=== PATIENT | female | born 1990 | race African-American/Black ===

== ENCOUNTER 2017-05-25 20:05 | Emergency (ER) | payer SELFPAY ==
[2017-05-25 20:24] VITALS: TEMP 98.4
[2017-05-25] MEDS ORDERED: NS 1,000 ML IV ONE ×2 (20:31→21:48)
[2017-05-25] MEDS ORDERED: HYDROmorphONE/DILAUDID 1 MG/ML INJ IVP ONE (21:32)
[2017-05-25 21:37] LABS: % IMMATURE GRANULYOCYTES 0.2 % (0.0-1.1); ABSOLUTE IMMATURE GRANULOCYTES 0.01 10^3/uL (0.00-0.10); ADD DIFF? NO; ADD MORPH? NO; ADD SCAN? NO; ATYPICAL LYMPHOCYTE FLAG 30 (0-99); FRAGMENT RBC FLAG 0 (0-99); HEMATOCRIT 38.3 % (38.0-47.0); HEMOGLOBIN 12.2 g/dL (12.6-16.3); LEFT SHIFT FLG 0 (0-99); LIPEMIA HEMOLYSIS FLAG 80 (0-99); MEAN CELL HEMOGLOBIN CONCENTR. 31.9 g/dL (32.4-36.7); MEAN CELL VOLUME 87.8 fL (81.5-99.8); MEAN PLATELET VOLUME 9.9 fL (8.7-11.7); PLATELET CLUMPS FLAG 10 (0-99); PLATELET COUNT 267 10^3/uL (150-400); RED BLOOD CELL COUNT 4.36 10^6/uL (4.18-5.33); RED CELL DISTRIBUTION WIDTH 14.9 % (11.5-15.2)
[2017-05-25] MEDS ORDERED: IOPAMIDOL (ISOVUE-300) 100 ML BTL ONE (21:39)
--- NOTE | 2017-05-25 21:48 | CPEKG ---
Heart Rate: 86 RR Interval: 698 P-R Interval: 140 QRSD Interval: 70 QT Interval: 372 QTC Interval: 445 P [place]: 56 QRS [place]: 16 T Wave [place]: 11 EKG Severity - NORMAL ECG - EKG Impression: SINUS RHYTHM Electronically Signed By: Aden Crawford 25-May-2017 23:19:16
[2017-05-25 21:52] LABS: ANION GAP 11 mEq/L (8-16); CALCIUM 8.9 mg/dL (8.5-10.4); CARBON DIOXIDE 18 mEq/l (22-31); CHLORIDE 110 mEq/L (97-110); CREATININE 0.6 mg/dL (0.6-1.0); GLOMERULAR FILTRATION RATE > 60; GLUCOSE 78 mg/dL (70-100); POTASSIUM 4.2 mEq/L (3.5-5.2); SODIUM 139 mEq/L (134-144)
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
[2017-05-25] MEDS ORDERED: methylPREDNISolone SOD SUCC 125 MG/2 ML VIAL IVP ONE ×2 (22:19)
[2017-05-25] MEDS ORDERED: FAMOTIDINE 20 MG in NS 100 ML IV ONE (22:42)
[2017-05-25] MEDS ORDERED: PROMETHAZINE 25MG SUPP PREPK#4 BTL TAKEHOME ONE (22:53)
[2017-05-25] MEDS ORDERED: PROMETHAZINE 25 MG PREPACK #4 BTL TAKEHOME ONE (23:22)
[2017-05-25 23:39] VITALS: BP 107/77; PULSE 92; RESP 19; O2SAT 95
== END 2017-05-25 23:39 | disposition home or self-care (01) ==
LOC: CED 20:05
PROC: 3E0337Z Introduction of Electrolytic and Water Balance Substance into Peripheral Vein, Percutaneous Approach (ICD-10-PCS; principal; 2017-05-25)
DX: S06.0X9A Concussion with loss of consciousness of unspecified duration, initial encounter (principal); S16.1XXA Strain of muscle, fascia and tendon at neck level, initial encounter; S39.91XA Unspecified injury of abdomen, initial encounter; T50.8X5A Adverse effect of diagnostic agents, initial encounter; E86.9 Volume depletion, unspecified; R11.10 Vomiting, unspecified; V43.92XA Unspecified car occupant injured in collision with other type car in traffic accident, initial encounter; Y92.410 Unspecified street and highway as the place of occurrence of the external cause
CPT/HCPCS: 70450-PO; 71010-PO; 72125-PO; 74177-PO; 80048-PO; 82947-QW; 85025-PO; 96365; J1170; J1200; L0172; Q9967